=== PATIENT | male | born 1995 | race Caucasian/White ===

== ENCOUNTER 2019-08-11 09:24 | Emergency (ER) | payer OTHER ==
--- NOTE | 2019-08-11 10:33 | XRAY Report ---
Reason: Trauma Procedure Date: 08/11/2019 Accession Number: [id number] / [id number] Procedure: XR - Knee 4 View RT CPT Code: Final Report FULL RESULT: EXAM: RIGHT KNEE RADIOGRAPHY EXAM DATE: 08/11/2019 09:56 AM. CLINICAL HISTORY: Trauma. COMPARISON: None. TECHNIQUE: 3 views. FINDINGS: Bones: Normal. No fractures or bone lesions. Joints: Normal. No effusion. No subluxations. Soft Tissues: Linear radiopaque foreign body consistent with a nail is noted in the soft tissues to the medial right knee. IMPRESSION: 1. No acute displaced fracture. 2. Normal alignment. No effusion. 3.Nail appears to be within the soft tissues in the medial right knee. Recommend post removal radiographs. RADIA
[2019-08-11] MEDS ORDERED: BUFFERED LIDOCAINE 10 ML SYRINGE SUBQ STA (11:48)
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
[2019-08-11 12:24] VITALS: BP 112/50
--- NOTE | 2019-08-11 13:57 | XRAY Report ---
Reason: post fb extration Procedure Date: 08/11/2019 Accession Number: [id number] / [id number] Procedure: XR - Knee 2 View RT CPT Code: Final Report FULL RESULT: EXAM: RIGHT KNEE RADIOGRAPHY 2 VIEWS EXAM DATE: 08/11/2019. CLINICAL HISTORY: Post foreign body extraction. COMPARISON: Right knee radiography done earlier the same day.. TECHNIQUE: AP and lateral views. FINDINGS: Bones: Normal. No fractures or bone lesions. Joints: Normal. No effusion. No subluxations. Soft Tissues: The anterior medial nail has been removed. In the location there is now a 7 metal mm wire IMPRESSION: The nail in the soft tissues anterior and medial to the distal femur has been removed. In this location there is now a 7 mm metal wire. Otherwise normal examination. RADIA
== END 2019-08-11 12:23 | disposition home or self-care (01) ==
LOC: ED 09:24
DX: S80.251A Superficial foreign body, right knee, initial encounter (principal); W45.0XXA Nail entering through skin, initial encounter; W29.4XXA Contact with nail gun, initial encounter; Y99.0 Civilian activity done for income or pay
CPT/HCPCS: 99283; 99284